=== PATIENT | male | born 1955 | race Caucasian/White ===

== ENCOUNTER → 2019-09-10 | Day surgery (SDC) | payer OTHER ==
[~2019-09-10] MED LIST: AMLODIPINE-VAL1 EAC1 PO; CRESTOR10 MG PO; FENTANYL CITRATE/PF 100MCG/2 ML INJ ONE; HYOSCYAMINE 0.125 MG TAB ONE; LEXAPRO10 MG PO; LIDOCAINE HCL 2% LOCAL INJ 5 ML SDV VIAL INJ ONE; MIDAZOLAM HCL 2 MG/2 ML VIAL ONE; PROPOFOL IV EMULSION 10 MG/ML 50 ML VIAL ONE
[2019-09-10 09:45] VITALS: BP 102/66
[2019-09-10 10:12] LABS: ALANINE AMINOTRANSFERASE 19 IU/L (0-55); ALBUMIN 3.7 g/dL (3.5-5.0); ALBUMIN/GLOBULIN RATIO 1.7 (0.8-2.0); ALKALINE PHOSPHATASE 86 IU/L (40-150); BLOOD UREA NITROGEN 16 mg/dL (7-26); BUN/CREATININE RATIO 16 (6-25); CALCIUM 9.1 mg/dL (8.4-10.2); CARBON DIOXIDE 26 mmol/L (22-29); CHLORIDE 107 mmol/L (98-107); CREATININE, SERUM 0.99 mg/dL (0.72-1.25); EST GLOMERULAR FILTRATION RATE > 60 ML/MIN (60-); GLUCOSE 116 mg/dL (74-118); SODIUM 142 mmol/L (136-145)
[2019-09-10 11:51] LABS: WBC,FECAL (FECAL LACTOFERRIN) NEGATIVE (NEGATIVE)
[2019-09-10 13:33] LABS: C DIFFICILE TOXIN A&B AMP PROB NEGATIVE (NEGATIVE)
--- NOTE | 2019-09-10 17:32 | Operative Report ---
DATE OF PROCEDURE: 09/10/2019 SURGEON: Oleksandr Jara MD PROCEDURES: EGD with biopsies and colonoscopy with polypectomy and biopsies. INDICATIONS FOR EGD: Heartburn, indigestion. INDICATIONS FOR COLONOSCOPY: Colorectal cancer screening, fecal urgency, weight loss. MEDICATIONS: The patient was done under MAC, please see anesthesiologist's note. PROCEDURE IN DETAIL: With the patient in left lateral decubitus position, a flexible fiberoptic Olympus gastroscope was introduced into the esophagus under direct visualization without any difficulty. There was some patchy erythema noted in distal esophagus. The scope was then advanced with ease into the stomach, traversing a small hiatal hernia. Mucosa overlying the antrum and the body revealed some patchy intense erythema and moderate edema, and biopsies were obtained and sent to stain for H. pylori. The pylorus was of normal contour and shape, it was intubated with ease and the scope was advanced all the way to the second portion of the duodenum. Biopsies were obtained from the proximal second portion and the duodenal bulb to rule out sprue. The scope was then withdrawn back into the stomach and retroflexed, mucosa overlying the fundus appeared to be within normal limits. The previously described hiatal hernia was also noted in the retroflexed position. The scope was then straightened out, it was subsequently withdrawn. The patient tolerated the procedure well. IMPRESSION: 1. Distal esophagitis, mild. Prominent subepithelial veins versus grade 1 esophageal varices (not mentioned in the body of the report). 2. Small hiatal hernia. 3. Gastritis, biopsied, biopsies sent to stain for H. pylori. 4. Rule out sprue. PLAN: 1. Follow up histology. 2. Initiate Protonix 40 mg one p.o. q.a.m. a.c. 3. Check hepatic panel. PROCEDURE IN DETAIL: The patient was then turned around after adequate lubrication of the anal canal, a flexible fiberoptic Olympus colonoscope was inserted into the rectum with ease and advanced all the way to the cecum. Mucosa overlying the cecum appeared to be within normal limits. The ileocecal valve was intubated and the scope was advanced into the terminal ileum. Biopsies were obtained. The scope was then withdrawn back into the colon. It was then withdrawn slowly and scattered diverticular disease, it was noted pretty much throughout. One minute polyp was noted in the ascending colon, that was removed per cold biopsy forceps. The transverse appeared to be within normal limits. Mild patchy inflammatory changes were noted in the left colon and the rectum and random biopsies were obtained. Approximately an 8 mm polyp was noted in the sigmoid colon, that was removed per hot snare polypectomy. The scope was retroflexed into the distal rectum and moderate-sized internal hemorrhoids were noted, none of which was actively bleeding. The scope was then straightened out, it was subsequently withdrawn after securing an adequate stool specimen, that was sent for the appropriate stool studies. The patient tolerated the procedure well. IMPRESSION: 1. Diverticulosis. 2. Ascending colon polyp, removed per cold biopsy forceps. 3. Mild patchy left-sided colitis. 4. Sigmoid colon polyp, approximately 8 mm in size, removed per snare electrocautery. 5. Internal hemorrhoids, none actively bleeding. PLAN: 1. Follow up histology. 2. Follow up stool studies. 3. Initiate Bentyl 10 mg one p.o. t.i.d. 4. VSL #3 one p.o. daily. 5. The patient might benefit from a followup colonoscopy in 5 years. Oleksandr Jara MD [facility] [place] /[id number] cc: Nile Galeas DO
--- OUTSIDE RECORDS SUMMARY | 2019-09-19 10:50 | XMS REPORT ---
Author [facility] Address Unknown Phone Unavailable Care Team Providers Care Mechanic Foreman Name Role Phone Unavailable Unavailable Payers Payer Name Policy Type Policy Number Effective Date Expiration Date Problems This patient has no known problems. Allergies, Adverse Reactions, Alerts Allergy Name Allergy Type Status Severity Reaction(s) Onset Date Inactive Date Treating Clinician Comments No Known Allergies DA Active U 2012-12-20 00:00:00 Medications This patient has no known medications. Results Test Description Test Time Test Comments Text Results Atomic Results Result Comments - CT LD LUNG CA SCREENING 2019-07-21 08:51:00 Name: CHANO MOSES [facility] : 1955 Age/S: 64 / M [address] [facility] Unit #: [id number] Loc: [place] [address] Phys: Nile Galeas DO Acct: [id number] Dis Date: Status: REG CLI PHONE #: [phone] Exam Date: 07/21/2019 0946 FAX #: [phone] Reason: F17.200 EXAMS: CPT CODE: [id number] CT LD LUNG CA SCREENING G0297 HISTORY: Nicotine dependence. COMPARISON: None available. CT chest without contrast: Automated exposure control. Bullous changes with upper lobe predominance suggestive mild COPD. No bronchiectasis, honeycombing or fibrosis. No endobronchial lesions are noted. No acute infiltrates, effusion or congestion. Calcified granuloma in the right upper lobe posterolaterally. 4 mm noncalcified lung nodule in the subpleural lateral left lower lobe anteriorly. Dependent changes. Follow-up according to Fleischner's criteria. Normal caliber unopacified aorta and pulmonary arteries. Unremarkable thyroid glands. No pathologic adenopathy. Esophageal wall is not thickened. Cardiac silhouette is normal without pericardial effusion. Visualized upper abdomen demonstrating hyperplastic left adrenal. Subcutaneous tissues and the musculature are normal in appearance. Bone island within the left eighth costovertebral rib. DJD. IMPRESSION: 4 mm noncalcified subpleural left lateral basal lung nodule. Follow-up according to Fleischner's criteria ( The Fleischner Society guidelines for followup of an incidentally detected 4 mm or smaller pulmonary nodule are as follows: If the patient is a low risk patient (non-smoker and no known tumor), a 4 mm nodule does not need followup. If the patient is a high risk patient (smoker or has a n extrathoracic primary), followup chest CT in one year is recommended. If unchanged, no further follow-up is recommended. If the patient has a primary extra thoracic tumor or hematogenous infection, nodule(s) cannot be ignored as it/they could represent metastasis or septic embolus). FOR INTERNAL CODING PURPOSES ONLY RESULT CODE: L2 FOLLOW UP: L6 at 0851 Reported and signed by: Domenico Vieiar M.D. PAGE 1 Signed Report (CONTINUED) Name: CHANO MOSES [facility] : 1955 Age/S: 64 / M [address] [facility] Unit #: [id number] Loc: [place] [address] Phys: Nile Galeas DO Acct: [id number] Dis Date: Status: REG CLI PHONE #: [phone] Exam Date: 07/21/2019 0946 FAX #: [phone] Reason: F17.200 EXAMS: CPT CODE: [id number] CT LD LUNG CA SCREENING G0297 <Continued> CC: Nile Galeas Technologist:Matthew Rodriguez RT(R),(MR),(CT) CTDI: DLP: Trnscb Date/Time: 07/21/2019 (0851) [email or web address] Orig Print D/T: S: 07/21/2019 (0946) PAGE 2 Signed Report
== END | disposition home or self-care (01) ==
LOC: OR 06:13
PROVIDERS: ATTEND Internal Medicine Gastroenterology
DX: R12 Heartburn (principal); K21.9 Gastro-esophageal reflux disease without esophagitis; I10 Essential (primary) hypertension; Z68.27 Body mass index [BMI] 27.0-27.9, adult; Z72.0 Tobacco use; E78.00 Pure hypercholesterolemia, unspecified; K20.9 Esophagitis, unspecified; K29.70 Gastritis, unspecified, without bleeding; K44.9 Diaphragmatic hernia without obstruction or gangrene; K57.30 Diverticulosis of large intestine without perforation or abscess without bleeding; K51.50 Left sided colitis without complications; K63.5 Polyp of colon; K64.8 Other hemorrhoids; K29.80 Duodenitis without bleeding; D12.2 Benign neoplasm of ascending colon; D12.5 Benign neoplasm of sigmoid colon; Z01.810 Encounter for preprocedural cardiovascular examination
CPT/HCPCS: 36415; 43239; 45380; 45385; 80053; 83630; 83993; 87045; 87177; 87328; 87493; 93005; J2001; J2250; J2704; J3010; 45378